=== PATIENT | female | born 1960 | race Caucasian/White ===

== ENCOUNTER 2017-07-22 06:43 | Day surgery (SDC) | payer OTHER ==
[~2017-07-22 06:43] MED LIST: Buffered Lidocaine 0.9% SYRIN* 5 ML/SYR SYRINGE INTRADERM ONE
[2017-07-22] MEDS ORDERED: Sodium Citrate/Citric Acid* 15 ML UDC ONE (06:59)
[2017-07-22] MEDS ORDERED: ceFAZolin 2 GM PREMIX (*) 50 ML IVPB ONE (06:59)
[2017-07-22] MEDS ORDERED: Bupivacaine 0.25% SDV* 30 ML ONE (07:18)
[2017-07-22] MEDS ORDERED: Bupivacaine 0.5% W/EPI SDV* 30 ML VIAL ONE (07:45)
[2017-07-22] MEDS ORDERED: fentaNYL* 50 MCG/ML 2 ML VIAL (100 MCG VIAL) ONE (07:45)
[2017-07-22] MEDS ORDERED: Midazolam* 1 MG/ML 2 ML VIAL (2 MG) ONE (07:45)
[2017-07-22] MEDS ORDERED: Lidocaine 2% PF * 5 ML VIAL ONE (08:06)
[2017-07-22] MEDS ORDERED: Dexamethasone IV* 4 MG/ML 1 ML (4 MG) ONE (08:06)
[2017-07-22] MEDS ORDERED: Ondansetron INJ* 2 MG/ML VIAL ONE (08:06)
[2017-07-22] MEDS ORDERED: Propofol* 10 MG/ML 20 ML BTL IV PUSH ONE (08:06)
[2017-07-22] MEDS ORDERED: EPHEDrine (Pressors)* 50 MG/ML VIAL ONE (08:41)
[2017-07-22 10:19] VITALS: BP 114/76
--- NOTE | 2017-07-22 15:57 | OP ---
DATE OF OPERATION: 07/22/17 - [facility] DATE OF : 60 SURGEON: Deandre Franco MD RESOLUTION EXPERT: MIS Lopez. An warehouse administrative assistant was needed for the entirety of the procedure to aide in retraction and positioning of the arm. ANESTHESIOLOGIST: Dr. Mckinnon. ANESTHESIA: Supraclavicular block with general. 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 OPERATIVE PROCEDURE: Right thumb basal joint arthroplasty with trapeziectomy and distally based split flexor carpi radialis tendon transfer for thumb suspension. INDICATIONS: Liana has had the left thumb basal joint arthroplasty done by Dr. Edu Morse in [place], [place]. She has done well with that. She is having similar symptoms on the right. I had given her an injection. She got some partial relief, which then reoccurred. She has been in therapy and she notes the thumb is feeling stronger, but she is still getting quite a bit of pain in the area of the basal joint. We talked about risks and benefits in the way that I do the surgery. She had elected to proceed. ESTIMATED BLOOD LOSS: 2 mL. COMPLICATIONS: None. FINDINGS: As expected. DESCRIPTION OF PROCEDURE: Liana was seen in the preoperative holding area. The correct side, site, and procedure were identified. She came back to the operating room where the supraclavicular block was performed and then anesthesia was induced. The arm was prepped and draped in the usual fashion and a formal time-out was performed. I began by making a 2 to 3 cm incision just off the dorsal aspect of the first dorsal compartment tendon from the base of the first metacarpal down towards the radial styloid. Full-thickness flaps were raised and dissection was carried down longitudinally to preserve the dorsal sensory radial nerves. The radial artery was mobilized, one very small branch was cauterized. Once the artery was mobilized and appropriately retracted, I went ahead and longitudinally opened the capsule of the basal joint and the scaphotrapezial joint and then full-thickness capsular and subperiosteal flaps were raised to expose the trapezium. The Carson blade was used to release the soft tissue around the trapezium. The rongeur was used to excise the entirety of the trapezium in piecemeal fashion. The FCR tendon was visualized in the base of the wound and this was preserved. Once the trapezium was fully excised, I used 2 sequentially larger drill bits to make a drill hole from the dorsal radial aspect of the base of the thumb metacarpal and extending out to the ulnar aspect of the articular surface. This was copiously irrigated and then attention was turned to preparing the tendon transfer. I began by making a 1 cm transverse incision about 1 cm proximal to the wrist flexion crease centered over the flexor carpi radialis tendon. The tendon sheath was opened and the tendon was brought up out of the wound. It was split longitudinally with the 15 blade and then a 25-gauge wire was passed through the split in the tendon. I then used the tenotomy scissors to release the flexor tendon sheath proximally and distally. Roughly 7 cm proximal to the first incision, I made a second incision and released the sheath around the FCR tendon in similar fashion and then more proximally than that, I made a third transverse incision in the musculotendinous junction and similarly opened up the sheath and released along the entirety of the tendon, releasing any other adhesions. I then used a Katie clamp and passed from my middle incision down to my distal incision, retrieved the 25-gauge wire and pulled it up into the middle incision, and then I did the same thing pulling it up into the proximal incision, which released the tendon at the musculotendinous junction. I cleaned up the muscle off the proximal aspect of the tendon. The proximal tendon was sewed with 3-0 Ethibond suture to keep it from splitting. I then used two 25-gauge wires to shuttle the tendon down through the FCR sheath into the thumb base wound. With the split end down into the thumb base wound, I went ahead and completed the split of the tendon with the tenotomy scissors all the way down to the base of the second metacarpal. The split end was then passed up through the drill hole, back around the intact limb of the FCR, and then pulled towards the ceiling as the tension was set and the transfer was secured with three 3-0 Ethibond sutures. The first suture grabbed all 3 limbs of the transfer. The second two sutures sewed together the 2 intact limbs. The remainder of the free tail was rolled up into a ball and secured with 3-0 Ethibond suture. This was then placed as an interposition between the base of the thumb metacarpal and the distal pole of the scaphoid. Please note that prior to all this, I had thoroughly inspected the scaphotrapezoid articulation by pulling axial traction on the second finger and using a Wilder elevator in the joint. The articular surfaces there looked good. Once I had the tendon interposed, I went ahead and used the 3-0 Ethibond suture to repair the capsule. Everything had been copiously irrigated. Skin was then closed with 4- 0 nylon suture for all 3 incisions. Some 0.25% Marcaine was infiltrated at the site of the trapeziectomy and around the wounds prior to closure. The wounds were dressed with Xeroform, 4x4's, sterile Webril, and a thumb spica splint with the IP joint free was placed. Tourniquet was deflated. The arm had been exsanguinated and the tourniquet inflated to 250 mmHg prior to making the skin incision. Hand pinked up immediately. Tourniquet time was a shade over an hour. She was then woken up and taken to the recovery room in stable condition. [id number]/[facility] #: [id number] MELANI
== END 2017-07-22 10:35 | disposition home or self-care (01) ==
LOC: OREAST 06:43
PROVIDERS: ATTEND Orthopaedic Surgery Hand Surgery
DX: M18.11 Unilateral primary osteoarthritis of first carpometacarpal joint, right hand (principal); I10 Essential (primary) hypertension
CPT/HCPCS: 88304; 88311; A9270-GY; J0690; J1100; J2250; J2405; J2704; J3010

== ENCOUNTER 2019-06-11 07:29 | Day surgery (SDC) | payer OTHER ==
[~2019-06-11 07:29] MED LIST changes: -Buffered Lidocaine 0.9% SYRIN* 5 ML/SYR SYRINGE INTRADERM ONE; +Buffered Lidocaine 1% SYRIN* 1 ML/SYRINGE INTRADERM ONE; +Dexamethasone IV* 4 MG/ML 1 ML (4 MG) IV SLOW PU ONE; +Famotidine IV* 10 MG/ML 2 ML (20 mg) IV ONE; +Lactated Ringers 1000 ML Bag* 1,000 ML IV SCH
[2019-06-11] MEDS ORDERED: Famotidine IV* 10 MG/ML 2 ML (20 mg) ONE (07:41)
[2019-06-11] MEDS ORDERED: Dexamethasone IV* 4 MG/ML 1 ML (4 MG) ONE (07:41)
[2019-06-11] MEDS ORDERED: ceFAZolin 2 GM in NS PREMIX(*) 2 GM/100 ML BAG IVPB ONE (07:41)
[2019-06-11] MEDS ORDERED: Atenolol TAB* 25 MG ONE (08:13)
[2019-06-11] MEDS ORDERED: fentaNYL* 50 MCG/ML 2 ML VIAL (100 MCG VIAL) ONE (08:28)
[2019-06-11] MEDS ORDERED: Midazolam* 1 MG/ML 2 ML VIAL (2 MG) ONE (08:29)
[2019-06-11] MEDS ORDERED: Lidocaine 2% PF * 5 ML VIAL ONE (08:29)
[2019-06-11] MEDS ORDERED: Lidocaine 1% INJ* 10 MG/ML 30 ML SDV ONE (08:30)
[2019-06-11] MEDS ORDERED: ROPIVACAINE 5 MG/ML 30 ML BTL (0.5%) ONE (08:31)
[2019-06-11] MEDS ORDERED: Bupivacaine 0.25% SDV* 30 ML ONE ×2 (09:16→09:26)
[2019-06-11] MEDS ORDERED: DiMENhydriNATE IV* 50 MG/ML VIAL IV PUSH PRN (09:52)
[2019-06-11] MEDS ORDERED: fentaNYL* 50 MCG/ML 2 ML VIAL (100 MCG VIAL) IV PRN (09:52)
[2019-06-11] MEDS ORDERED: Naloxone* 0.4 MG/ML 1 ML VIAL IV PRN (09:52)
[2019-06-11 12:30] VITALS: BP 120/80
--- NOTE | 2019-06-11 15:34 | OP ---
DATE OF OPERATION: 06/11/19 - [facility] DATE OF : 60 SURGEON: Deandre Franco MD. SENIOR MECHANICAL TECHNICIAN: MIS Will. An business office assistant was needed for the entirety of the procedure to aide in positioning of the arm and retraction. ANESTHESIOLOGIST: Dr. Ashley. ANESTHESIA: Block plus general. 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 OPERATIVE PROCEDURE: 1. Revision right thumb carpometacarpal arthroplasty with Arthrex Mini TightRope suspension and AlloDerm interposition. 2. Right partial trapeziectomy with AlloDerm interposition in the scaphotrapezoid joint. INDICATIONS: Liana had the aforementioned base of joint arthroplasty performed , did well initially and just became persistently more symptomatic and was getting to the point where it was difficult for her to use the hand at work. We have been following this for some time with steroid injections and nonoperative treatments. She wanted to proceed and ultimately had to bring her back and see we could revise her arthroplasty to see if we could get her out of pain. She understands and she wants to proceed. ESTIMATED BLOOD LOSS: 2 mL. COMPLICATIONS: None. FINDINGS: See above and below. DESCRIPTION OF PROCEDURE: Liana was seen in the preoperative holding area. The correct site, side, and procedure were identified. We came back to the operating room. The arm was prepped and draped in the usual fashion and a time- out was performed. I reopened her prior dorsoradial thumb base incision. Dissection was carried down through the subcutaneous tissue and scar tissue. The radial artery was dissected out with great care and retracted out of the way. The capsule was reopened along the prior Ethibond suture line to expose the site of the prior trapeziectomy. There was some evidence of subsidence and a little bit of an osteophyte on the dorsal rim of the proximal metacarpal. I went ahead and excised that osteophyte and cleaned up the entire site of the trapeziectomy. I looked at the scaphotrapezoid joint. There was some full-thickness cartilage wear. I did go ahead and take a small osteotome and excised the proximal 3 mm of trapezoid. This came out in one nice wafer. There was excellent maintenance of the space between the proximal trapezoid and the distal scaphoid. After the partial trapezoid was performed and I cleaned up the entire site of the trapeziectomy, I went ahead and placed the guidewire for the Arthrex Mini TightRope device from the dorsoradial base of the thumb metacarpal extending out the second metacarpal base. I made a 1-cm longitudinal incision over the dorsum of the second metacarpal base and I dissected out preserving the sensory nerve and elevating the muscle off that portion of the second metacarpal base. Once I had the guidewire passed there, I confirmed the placement on mini C-arm. I then used a Nitinol wire to pull up a silk tie suture through the drill tunnel. I then used that to suture shuttle the tail of my FiberWire suture down. This was pulled through the tunnel until the EndoButton sat nicely on the base of second metacarpal. I then clipped the FiberWire suture and placed a second EndoButton on the other 2 tails of the FiberWire suture. This was then placed on the base of the second metacarpal, appropriate tension was set, and then I tied that off. After I threw 1 knot, I confirmed the alignment on mini-C arm fluoroscopy. It looked excellent, so I went ahead and tied off through the rest of my knots. Lastly, I went ahead and took some AlloDerm tissue and folded it up onto itself. I made a nice wafer of tissue, secured to the margins with 4-0 Ethibond suture. I placed some bone wax on the cancellous portion of the proximal trapezoid. I then irrigated out and then placed the AlloDerm tissue into the site of the partial trapeziectomy. I took a separate piece of AlloDerm tissue and placed it at the site of the trapeziectomy and between the base of the first metacarpal and the base of the second metacarpal. Once I had that area completely filled up with AlloDerm, I went ahead and irrigated everything out. The capsule was closed with 3-0 Ethibond suture to keep the AlloDerm nice in place. The skin was closed with 4-0 nylon suture. The wounds were dressed in a thumb spica splint with the IP joint free was applied. Tourniquet was deflated and the hand pinked up immediately. She was taken to the recovery room in stable condition. [id number]/[facility] #: [id number] MELANI
== END 2019-06-11 12:30 | disposition home or self-care (01) ==
LOC: OREAST 07:29
PROVIDERS: ATTEND Orthopaedic Surgery Hand Surgery
DX: M18.11 Unilateral primary osteoarthritis of first carpometacarpal joint, right hand (principal); M19.041 Primary osteoarthritis, right hand; F41.8 Other specified anxiety disorders; I11.0 Hypertensive heart disease with heart failure; R00.2 Palpitations; K21.9 Gastro-esophageal reflux disease without esophagitis; K44.9 Diaphragmatic hernia without obstruction or gangrene; F32.9 Major depressive disorder, single episode, unspecified
CPT/HCPCS: 76000; C1776; J0690; J1100; J2250; J2795; J3010; J3490; Q4116

== ENCOUNTER 2019-08-03 12:28 | Emergency (ER) | payer BC, OTHER ==
--- NOTE | 2019-08-03 12:33 | UC ---
Lower Extremity/Ankle HPI - HPI Summary HPI Summary: 59 yo female presents with RIGHT foot pain. She tells me that she has a history of right tibial tendinitis and wears special footwear and braces for this. This morning she woke up and went to step on her right foot and had severe shooting pain at plantar foot pad. She took tramadol and ibuprofen and rested and her pain improved, but did not resolve - prompting her visit to . She denies specific injury. Denies numbness or tingling. - History of Current Complaint Stated Complaint: FOOT INJURY RIGHT Time Seen by Provider: 08/03/19 12:33 Hx Obtained From: Patient Onset/Duration: Sudden Onset Severity Initially: Severe Severity Currently: Moderate Pain Intensity: 5 Pain Scale Used: 0-10 Numeric Aggravating Factor(s): Standing, Ambulation Alleviating Factor(s): Rest, Elevation Able to Bear Weight: Yes - Allergies/Home Medications Allergies/Adverse Reactions: Allergies Allergy/AdvReac Type Severity Reaction Status Date / Time No Known Allergies Allergy Verified 08/03/19 12:43 Home Medications: Home Medications traMADol TAB* [Ultram*] 50 mg PO Q6HR PRN 08/03/19 [History Confirmed 08/03/19] PMH/Surg Hx/FS Hx/Imm Hx Cardiovascular History: Hypertension GI/ History: Gastroesophageal Reflux Psychological History: Anxiety, Depression - Surgical History Surgical History: Yes Surgery Procedure, Year, and Place: [place] [place]2017 LEFT THUMB ARTHROPLASTY [place]- 2017 CYSTOSCOPY W/URE[address]AL DIL[address]ATION DR [place]. 2007-[facility] [place]. [id number]. 1986-4TH METATARSAL OSTEOTOMY[place] [place]. 1974-URETRAL DILITATION- [facility] [place]. 1971-LYMPH NODE FROM UNDER CHIN - BENIGN-FOR ENLARGEMENT. LEEP PROCEDURE 11/2016. LEFT BREAST BIOPSY 2011 - Family History Known Family History: Positive: Non-Contributory - Social History Lives: With Family Alcohol Use: Daily Alcohol Amount: 2 GLASSES OF WINE DAILY Substance Use Type: None Smoking Status (MU): Never Smoked Tobacco Have You Smoked in the Last Year: No Review of Systems All Other Systems Reviewed And Are Negative: No Constitutional: Positive: Negative Skin: Positive: Negative Respiratory: Positive: Negative Cardiovascular: Positive: Negative Neurovascular: Positive: Negative Musculoskeletal: Positive: Other: - Right foot pain Neurological: Positive: Negative Psychological: Positive: Negative Physical Exam - Summary Physical Exam Summary: GENERAL: NAD. WDWN. No pain distress. SKIN: No rashes, sores, lesions, or open wounds. CHEST: No accessory muscle use. Breathing comfortably and in no distress. CV: Pulses intact PT and DP. Cap refill <2seconds MSK: RIGHT FOOT: Mild TTP about 2nd and 3rd phalanges tendons. FROM with mild pain during flexion. No edema NEURO: Alert. Sensations intact and symmetric B/L LEs PSYCH: Age appropriate behavior. Triage Information Reviewed: Yes Vital Signs: Vital Signs: Temp Pulse Resp BP Pulse Ox 97.4 F 67 18 144/97 100 08/03/19 12:39 08/03/19 12:39 08/03/19 12:39 08/03/19 12:39 08/03/19 12:39 Vital Signs Reviewed: Yes Diagnostics - Radiology FOOT Radiology Interpretation Completed By: Radiologist Summary of Radiographic Findings: IMPRESSION: No fracture of the right foot is noted. Hallux valgus. Lower Extremity Course/Dx - Course Course Of Treatment: XR negative. Suspect muscle cramp/tendinitis. Pt reports that her pain is improving by the hour since occurring this morning and states that it feels better now but pain is still there a little. She is ambulatory without assistance, but has increased pain - therefore will place her in a CAM boot for comfort. Continue at home pain medications and NSAIDs as directed. She sees Dr. Hernandez for chronic tendinitis in her right foot - will have her f/ u with Ortho if her symptoms do not improve. - Differential Dx/Diagnosis Provider Diagnosis: Tendinitis Discharge ED - Sign-Out/Discharge Documenting (check all that apply): Patient Departure All imaging exams completed and their final reports reviewed: Yes - Discharge Plan Condition: Stable Disposition: HOME Patient Education Materials: Tendinitis (ED), Metatarsalgia (DC) Referrals: John Fernandez MD [Primary Care Provider] - Additional Instructions: If you develop a fever, shortness of breath, chest pain, new or worsening symptoms - please call your PCP or go to the ED immediately. Your blood pressure was high at todays visit. Please see your primary provider within 4 weeks for recheck and re-evaluation. 1) Rest, elevate, and apply ice to your foot intermittently throughout the day to reduce pain 2) Use the walking boot as needed for comfort 3) If your symptoms have not improved within 1 week - please follow up with your Orthopedic doctor - Billing Disposition and Condition Condition: STABLE Disposition: Home - Attestation Statements Provider Attestation: Per institutional requirements, I have reviewed the chart, however, I was not consulted specifically or made aware of this patient by the midlevel provider. I did not personally evaluate, interact with , or disposition this patient.
[2019-08-03 12:43] VITALS: BP 144/97
== END 2019-08-03 13:28 | disposition home or self-care (01) ==
LOC: UCEAST 12:28
DX: M77.9 Enthesopathy, unspecified (principal); I10 Essential (primary) hypertension; K21.9 Gastro-esophageal reflux disease without esophagitis; F41.9 Anxiety disorder, unspecified; F32.9 Major depressive disorder, single episode, unspecified
CPT/HCPCS: 99213; G0463